=== PATIENT | female | born 1990 | race Asian ===

== ENCOUNTER 2023-01-21 12:59 | Day surgery (SDC) | payer BC ==
[~2023-01-21 12:59] MED LIST: Dexamethasone 4 MG/ML 5 ML MDV ONE; Midazolam 1 MG/ML 2 ML SDV ONE; Ondansetron 4 MG/2 ML SDV ONE; Propofol 200 MG/20 ML SDV ONE; Succinylcholine/Sod PF 100 MG/5 ML SYRINGE IV ONE; ePHEDrine 50 MG/ML SDV ONE
[2023-01-21] MEDS ORDERED: Lactated Ringers 1,000 ML IV SCH (13:15)
== END 2023-01-21 15:04 | disposition home or self-care (01) ==
LOC: MW.SDS 12:59 → MERGE 14:45 → MW.SDS 15:04
PROVIDERS: ATTEND Surgery
DX: K29.50 Unspecified chronic gastritis without bleeding (principal); K29.80 Duodenitis without bleeding; K21.00 Gastro-esophageal reflux disease with esophagitis, without bleeding; K52.9 Noninfective gastroenteritis and colitis, unspecified; R35.0 Frequency of micturition; Z79.899 Other long term (current) drug therapy; Z87.440 Personal history of urinary (tract) infections
CPT/HCPCS: 43239; 45380; 81025; J2250; J2704; J7120; 00813; J0330; J1100; J2405; J3490